=== PATIENT | male | born 2000 | race Caucasian/White ===

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

== ENCOUNTER 2019-01-23 12:28 | Emergency (ER) | payer OTHER ==
[2019-01-23] MEDS ORDERED: Lidocaine 1% MPF ** 5 ML VIAL IM ONE (13:06)
[2019-01-23] MEDS ORDERED: cefTRIAXone VIAL(*) 250 MG VIAL IM ONE (13:06)
[2019-01-23] MEDS ORDERED: Azithromycin TAB* 250 MG PO ONE (13:07)
--- NOTE | 2019-01-23 14:06 | ED ---
GI/ HPI - HPI Summary HPI Summary: Patient is a 18yo M presenting to the ED with concern for STD's. Patient states a few weeks ago he had sexual intercourse with a new partner in unsure of the partner status. This was unprotected. Patient states since that time he has had a small erythematous area to the right side of the shaft of the penis which is not raised and non-painful. Denies any penile discharge. Denies any fevers, sweats or chills. Otherwise healthy. Takes no medications. No PMHx. No hx of std's. No surg history. - History of Current Complaint Chief Complaint: EDGeneral Time Seen by Provider: 01/23/19 12:41 Stated Complaint: GENERAL ILLNESS Hx Obtained From: Patient Onset/Duration: Started Days Ago Timing: Constant Current Severity: None Pain Intensity: 0 Additional Locations for Males: Penis Associated Signs and Symptoms: Positive: Negative Aggravating Factor(s): Nothing Alleviating Factor(s): Nothing - Allergy/Home Medications Allergies/Adverse Reactions: Allergies Allergy/AdvReac Type Severity Reaction Status Date / Time No Known Allergies Allergy Verified 01/23/19 13:03 PMH/Surg Hx/FS Hx/Imm Hx Previously Healthy: Yes Endocrine/Hematology History: Reports: Hx Blood Disorders - von Willebrand's 2N Denies: Hx Diabetes Cardiovascular History: Denies: Hx Coronary Artery Disease, Hx Hypertension Sensory History: Denies: Hx Legally Blind, Hx Hearing Problem Opthamlomology History: Denies: Hx Legally Blind Neurological History: Denies: Hx Nerve Disease - Cancer History Hx Hematologic Symptoms: Yes - Von Willebrand disease 2N - Surgical History Surgery Procedure, Year, and Place: nasal surg for fx 08/19/17, [facility] with post op bleed day 5 requiring sphenopalatine artery cauterization by Dr. Gerard Wilkerson, ENT. - Immunization History Hx Pertussis Vaccination: No Immunizations Up to Date: Yes Infectious Disease History: No Infectious Disease History: Denies: Traveled Outside the [place] in Last 30 Days - Family History Known Family History: Positive: Blood Disorder - unknown if other family members with von Willebrand's Negative: Renal Disease, Seizure Disorder - Social History Occupation: Unemployed Lives: Alone Alcohol Use: Weekly Hx Substance Use: Yes Substance Use Type: Reports: Marijuana Hx Tobacco Use: No Smoking Status (MU): Never Smoked Tobacco Review of Systems Negative: Fever, Chills, Fatigue, Skin Diaphoresis Negative: Palpitations, Chest Pain Negative: Shortness Of Breath Negative: Abdominal Pain, Vomiting, Diarrhea Positive: see HPI. Negative: burning, dysuria, discharge, frequency, flank pain , hematuria, incontinence, pain, urgency Musculoskeletal: Negative All Other Systems Reviewed And Are Negative: Yes Physical Exam Triage Information Reviewed: Yes Vital Signs On Initial Exam: Initial Vitals Temp Pulse Resp BP Pulse Ox 98.3 F 76 16 119/75 98 01/23/19 12:32 01/23/19 12:32 01/23/19 12:32 01/23/19 12:32 01/23/19 12:32 Vital Signs Reviewed: Yes Appearance: Positive: Well-Appearing, Well-Nourished Skin: Positive: Warm, Skin Color Reflects Adequate Perfusion Head/Face: Positive: Normal Head/Face Inspection Eyes: Positive: EOMI, CONNIE, Conjunctiva Clear Neck: Positive: Supple, No Lymphadenopathy Respiratory/Lung Sounds: Positive: Clear to Auscultation, Breath Sounds Present Cardiovascular: Positive: RRR, Pulses are Symmetrical in both Upper and Lower Extremities Male Genital Exam: Positive: Normal Genitalia, Lesions - small erythematous area to the R side of the shaft of the penis without raised area. Negative: Epididymal Tenderness, Scrotum Tenderness (R), Scrotum Tenderness (L), Testicular Tenderness (R), Testicular Tenderness (L) Musculoskeletal: Positive: Normal, Strength/ROM Intact Psychiatric: Positive: Normal, Affect/Mood Appropriate Procedures - Sedation Patient Received Moderate/Deep Sedation with Procedure: No Diagnostics - Vital Signs Vital Signs Temp Pulse Resp BP Pulse Ox 01/23/19 12:32 98.3 F 76 16 119/75 98 - Laboratory Lab Statement: Any lab studies that have been ordered have been reviewed, and results considered in the medical decision making process. GIGU Course/Dx - Course Course Of Treatment: Patient is assessed for exposure of std's. Denies any penile discharge. On physical exam, patient has a small .2cm erythematous nonraised area which is not painful to the R side of the shaft of the penis. This does not appear to be a vesicle or wart. No penile drainage. No swelling noted. GC/chlaymidia, syphilis and HIV obtained. Awaiting results. Rocephin and azithromycin given prophylactically. - Diagnoses Differential Diagnoses - Male: Other - std, gc, chlaymdia, normal exam, HSV, HPV Provider Diagnoses: Encounter for assessment of STD exposure Discharge ED - Sign-Out/Discharge Documenting (check all that apply): Patient Departure - Discharge Plan Condition: Stable Disposition: HOME Patient Education Materials: Sexually Transmitted Diseases (ED) Referrals: [facility] - Delon FLAHERTY [Primary Care Provider] - Additional Instructions: Will call with any positive results - Billing Disposition and Condition Condition: STABLE Disposition: Home - Attestation Statements Provider Attestation: I was available for consult. This patient was seen by the OLIVER. The patient was not presented to, seen by, or examined by me. Jose Reynoso MD
[2019-01-23 14:08] VITALS: BP 106/55
[2019-01-23 14:10] LABS: HIV 4th Generation Nonreactive (Nonreactive)
[2019-01-24 13:39] LABS: Chlamydia trachomatis NAA Negative (Negative); Neisseria gonorrhoeae (GC) NAA Negative (Negative)
== END 2019-01-23 14:07 | disposition home or self-care (01) ==
LOC: ED 12:28
DX: Z11.3 Encounter for screening for infections with a predominantly sexual mode of transmission (principal); L53.9 Erythematous condition, unspecified; D68.0 Von Willebrand disease
CPT/HCPCS: 36415; 86780; 87389; 87491; 87591; 96372; 99281; A9270-GY; J0696